=== PATIENT | female | born 1940 | race Caucasian/White ===

== ENCOUNTER 2020-09-20 12:54 | Observation (INO) | payer OTHER, SELFPAY ==
[~2020-09-20] VITALS: Ht 157.5 cm; Wt 77.1 kg
[2020-09-20 12:54] VITALS: BP_SYST 131
[2020-09-20] MEDS ORDERED: ONDANSETRON HCL 4 MG/2 ML VIAL IVP ONE (13:00)
[2020-09-20] MEDS ORDERED: NACL 0.9% 1,000 ML IV ONE (13:00)
[2020-09-20 13:17] LABS: BASOPHILS # (AUTO) 0.1 K/uL (0.0-0.2); BASOPHILS % (AUTO) 0.7 % (0.0-2.0); EOSINOPHILS # (AUTO) 0.4 K/uL (0.0-0.4); EOSINOPHILS % (AUTO) 3.2 % (0.0-4.0); HEMATOCRIT 35.4 % (36-48); HEMOGLOBIN 11.8 g/dL (12.0-16.0); LYMPHOCYTES # (AUTO) 2.1 K/uL (1.0-5.5); LYMPHOCYTES % (AUTO) 16.7 % (20.5-51.5); MEAN CORPUSCULAR HEMOGLOBIN 29 pg (27-31); MEAN CORPUSCULAR HGB CONC 33 % (32-36); MEAN CORPUSCULAR VOLUME 86 fL (79.0-98.0); MONOCYTES # (AUTO) 1.3 K/uL (0.0-1.0); MONOCYTES % (AUTO) 10.3 % (1.7-9.3); NEUTROPHILS # (AUTO) 8.5 K/uL (1.8-7.7); NEUTROPHILS % (AUTO) 69.1 % (40.0-70.0); RED BLOOD CELL COUNT(AUTO) 4.14 MIL/uL (4.2-6.2); RED CELL DISTRIBUTION WIDTH 16.1 % (9.0-15.0); WHITE BLOOD COUNT (AUTO) 12.4 K/uL (4.8-10.8)
[2020-09-20 13:29] LABS: ANION GAP 9 (5-15); CALCIUM 8.4 mg/dL (8.4-11.0); CHLORIDE 106 mmol/L (98-107); CREATININE 1.01 mg/dL (0.55-1.30); PLATELET COUNT (AUTO) 1127 K/uL (130-430); POTASSIUM 3.8 mmol/L (3.5-5.1); SODIUM SERUM 143 mmol/L (136-145); UREA NITROGEN, BLOOD 16 mg/dL (8-21)
[2020-09-20 13:35] LABS: ALANINE AMINOTRANSFERASE 18 U/L (12-78); ALBUMIN 3.5 g/dL (3.4-4.8); ASPARTATE AMINOTRANSFERASE 21 U/L (10-37); GLUCOSE 155 mg/dL (70-99); LIPASE 116 U/L (73-393); TOTAL BILIRUBIN 0.7 mg/dL (0.0-1.0)
[2020-09-20] MEDS ORDERED: MECLIZINE HCL 25 MG TABLET (ANITVERT) PO ONE (14:15)
[2020-09-20 14:37] LABS: INR 2.3 (0.8-1.2); PROTHROMBIN TIME 22.8 SECS (9.5-12.5)
[2020-09-20 14:55] LABS: BILIRUBIN,URINE NEGATIVE (NEGATIVE); BLOOD, URINE NEGATIVE (NEGATIVE); CLARITY/URINE CLEAR (CLEAR); COLOR,URINE YELLOW (YELLOW); GLUCOSE,URINE NEGATIVE (NEGATIVE); KETONES,URINE NEGATIVE (NEGATIVE); LEUKOCYTE ESTERASE ,URINE 2+ (NEGATIVE); NITRITE, URINE POSITIVE (NEGATIVE); PROTEIN URINE NEGATIVE (NEGATIVE); UROBILINOGEN,URINE 0.2 (0.2-1.0)
[2020-09-20 15:04] LABS: BACTERIA,URINE MANY /HPF (None Seen); MUCUS,URINE None Seen /LPF (None Seen); RBC,URINE 0-3 /HPF (0-3)
[2020-09-20] MEDS ORDERED: cefTRIAXone 1 GM in D5W 50 ML IV ONE (15:15)
[2020-09-20] MEDS ORDERED: cefTRIAXone 1 GM VIAL ONE (16:21)
[2020-09-20 18:00] VITALS: BP_SYST 131
[2020-09-20 19:45] VITALS: BP_SYST 112
[2020-09-20] MEDS ORDERED: DIPHENHYDRAMINE INJ 50 MG/ML VIAL IVP ONE (23:30)
[2020-09-21] VITALS: BP_SYST 137
[2020-09-21] MEDS ORDERED: traZODone HCL 50 MG TABLET (DESYREL) PO PRN
[2020-09-21] MEDS ORDERED: HYDROcodone/ACETAMIN 10-325 MG TAB PO PRN (00:30)
[2020-09-21] MEDS ORDERED: LORazepam 2 MG/ML VIAL IVP PRN (00:30)
[2020-09-21] MEDS ORDERED: ACETAMINOPHEN 325 MG TABLET PO PRN (00:30)
[2020-09-21] MEDS ORDERED: ONDANSETRON HCL 4 MG/2 ML VIAL IVP PRN (00:30)
[2020-09-21] MEDS ORDERED: HYDROcodone/ACETAMIN 5-325 MG TAB (NORCO/ VICODIN) PO PRN (00:30)
[2020-09-21] MEDS ORDERED: NALOXONE HCL 0.4 MG/ML AMP (NARCAN) IVP PRN ×2 (00:30)
[2020-09-21] MEDS ORDERED: MECLIZINE HCL 25 MG TABLET (ANITVERT) PO ONE (01:00)
[2020-09-21] MEDS: D5/0.45 NS 1,000 ML IV SCH ×2 (01:01→11:51)
[2020-09-21 07:35] LABS: BASOPHILS % (AUTO) 0.4 % (0.0-2.0); EOSINOPHILS # (AUTO) 0.3 K/uL (0.0-0.4); EOSINOPHILS % (AUTO) 2.5 % (0.0-4.0); HEMATOCRIT 31.5 % (36-48); HEMOGLOBIN 10.7 g/dL (12.0-16.0); LYMPHOCYTES % (AUTO) 9.2 % (20.5-51.5); MEAN CORPUSCULAR HEMOGLOBIN 29 pg (27-31); MEAN CORPUSCULAR HGB CONC 34 % (32-36); MEAN CORPUSCULAR VOLUME 85 fL (79.0-98.0); MONOCYTES # (AUTO) 0.9 K/uL (0.0-1.0); NEUTROPHILS # (AUTO) 8.9 K/uL (1.8-7.7); NEUTROPHILS % (AUTO) 79.9 % (40.0-70.0); RED BLOOD CELL COUNT(AUTO) 3.69 MIL/uL (4.2-6.2); RED CELL DISTRIBUTION WIDTH 15.7 % (9.0-15.0); WHITE BLOOD COUNT (AUTO) 11.1 K/uL (4.8-10.8)
[2020-09-21 07:45] LABS: ANION GAP 6 (5-15); CHLORIDE 108 mmol/L (98-107); CREATININE 0.96 mg/dL (0.55-1.30); GLUCOSE 95 mg/dL (70-99); POTASSIUM 3.4 mmol/L (3.5-5.1); SODIUM SERUM 144 mmol/L (136-145); UREA NITROGEN, BLOOD 15 mg/dL (8-21)
[2020-09-21 08:00] VITALS: BP_SYST 110
[2020-09-21 08:38] LABS: PLATELET COUNT (AUTO) 820 K/uL (130-430)
[2020-09-21] MEDS ORDERED: cefTRIAXone 1 GM IVPB PREMIX 50 ML IV SCH (09:00)
[2020-09-21] MEDS ORDERED: MONT10TA33 PO (10:37)
[2020-09-21] MEDS ORDERED: GLU500 PO (10:37)
[2020-09-21] MEDS ORDERED: FURO-149 PO (10:37)
[2020-09-21] MEDS ORDERED: WARF4TAB72 PO ×2 (10:37)
[2020-09-21] MEDS ORDERED: PRAV10TA37 PO (10:37)
[2020-09-21] MEDS ORDERED: POTA8TAB4 PO (10:37)
[2020-09-21] MEDS ORDERED: OMEP40CA13 PO (10:37)
[2020-09-21] MEDS ORDERED: ESCI10TA PO (10:37)
[2020-09-21 11:23] VITALS: BP_SYST 132
[2020-09-21] MEDS ORDERED: MECLIZINE HCL 25 MG TABLET (ANITVERT) PO PRN (12:15)
[2020-09-21] MEDS ORDERED: LEVO250T58 PO (12:50)
[2020-09-21] MEDS ORDERED: MECL-160 PO (12:50)
[2020-09-21 13:29] VITALS: BP_SYST 110
[2020-09-21 16:59] VITALS: BP_SYST 119
[2020-09-21] MEDS ORDERED: traZODone HCL 50 MG TABLET (DESYREL) PO SCH (21:00)
== END 2020-09-21 17:50 | disposition home or self-care (01) ==
LOC: SED 12:54 → STU 16:06
PROVIDERS: ADMIT Preventive Medicine Preventive Medicine/Occupational Environmental Medicine; ATTEND Internal Medicine Hospice and Palliative Medicine
DX: R42 Dizziness and giddiness (principal); Z20.822 Contact with and (suspected) exposure to COVID-19; D72.829 Elevated white blood cell count, unspecified; D64.9 Anemia, unspecified; D47.3 Essential (hemorrhagic) thrombocythemia; E11.65 Type 2 diabetes mellitus with hyperglycemia; J45.909 Unspecified asthma, uncomplicated; C18.9 Malignant neoplasm of colon, unspecified; K21.9 Gastro-esophageal reflux disease without esophagitis; I10 Essential (primary) hypertension; N39.0 Urinary tract infection, site not specified; I48.91 Unspecified atrial fibrillation; Z95.0 Presence of cardiac pacemaker; Z88.0 Allergy status to penicillin; Z86.718 Personal history of other venous thrombosis and embolism; Z87.891 Personal history of nicotine dependence
CPT/HCPCS: 36415 ×2; 70450; 71045; 76376; 80048; 80053; 81000; 83605; 83690; 84484; 85025 ×2; 85610; 85730; 87040; 87086; 87426; 93005; 93880; 96361 ×2; 96365; 96366; 96375 ×2; 99285; G0378; J0696 ×2; J1200; J2405; J8597 ×2